=== PATIENT | female | born 1995 ===

== ENCOUNTER 2022-09-02 08:45 | Inpatient (IN) | payer OTHER ==
[2022-09-02 10:53] VITALS: BMI 27.1
[2022-09-02] MEDS ORDERED: DEXTROSE 5%-LACTATED RINGERS 1,000 ML IV SCH (11:00)
[2022-09-02] MEDS: MISOPROSTOL 100 MCG TABLET PV SCH ×2 (12:40→16:09)
[2022-09-02 12:48] LABS: BASO % 0.3 % (0-2.0); EOS % 0.2 % (0-4.5); HEMATOCRIT 37.2 % (32.4-45.2); HEMOGLOBIN 12.2 GM/dL (10.7-15.3); LYMPH % 13.5 % (8-40); MCH 26.3 pg (25.7-33.7); MCHC 32.8 g/dl (32.0-36.0); MEAN CELL VOLUME 80.3 fl (80-96); MEAN PLT VOLUME 9.1 fl (7.5-11.1); MONO % 4.8 % (3.8-10.2); NEUT % 81.2 % (42.8-82.8); PLATELET COUNT 158 10^3/uL (134-434); RBC 4.63 M/mm3 (3.60-5.2); RDW 15.8 % (11.6-15.6); WHITE BLOOD COUNT 8.4 K/mm3 (4.0-10.0)
[2022-09-02 12:55] LABS: INR 1.15 (0.83-1.09); PROTHROMBIN TIME (PATIENT) 13.2 SEC (9.7-13.0)
[2022-09-02 12:57] LABS: ACTIVATED PTT 26.9 SECONDS (25.2-36.5)
[2022-09-02 13:06] LABS: CHLORIDE 106 mmol/L (98-107); SODIUM 138 mmol/L (136-145)
[2022-09-02 13:07] LABS: CALCIUM 8.7 mg/dL (8.5-10.1)
[2022-09-02 13:08] LABS: ANION GAP 10 MMOL/L (8-16); CO2 23 mmol/L (21-32); GLUCOSE,RANDOM 91 mg/dL (74-106)
[2022-09-02 13:11] LABS: CREATININE 0.4 mg/dL (0.55-1.3)
[2022-09-02 13:14] LABS: BLOOD UREA NITROGEN 2.8 mg/dL (7-18)
[2022-09-02] MEDS ORDERED: SODIUM CHLORIDE 1,000 ML IV STA (13:57)
[2022-09-02] MEDS ORDERED: morphine SULFATE 4 MG/ML VIAL IVPB ONE (14:40)
[2022-09-02] MEDS ORDERED: morphine SULFATE 4 MG/ML VIAL ONE (14:43)
[2022-09-02] MEDS ORDERED: LIDOCAINE HCL 1% PRESERVATIVE FREE - 30ML VIAL ONE (15:27)
[2022-09-02] MEDS ORDERED: OXYTOCIN 20 UNITS in 0.9% NS 20 UNIT/1,000 ML INFUS.BAG IV ONE (15:28)
[2022-09-02] MEDS ORDERED: BENZOCAINE 28 GM HEMORRHOIDAL OINTMENT TP PRN (16:05)
[2022-09-02] MEDS ORDERED: WITCH HAZEL 50% (TUCKS) 40 PAD/JAR PAD TP PRN (16:05)
[2022-09-02] MEDS ORDERED: BENZOCAINE 20% 57 GM BOTTLE TP PRN (16:05)
[2022-09-02] MEDS ORDERED: OXYTOCIN 20 UNITS in 0.9% NS 20 UNIT/1,000 ML INFUS.BAG IV SCH (16:15)
[2022-09-02 16:54] LABS: CORD BASE EXCESS -0.9 mmol/L (0-2); CORD HCO3 23.2 mmHg (20-29); CORD PCO2 36.7 mmHg (30-78); CORD pH 7.418 (7.14-7.44)
[2022-09-02 16:56] LABS: CORD BASE EXCESS -1.2 mmol/L (0-2); CORD HCO3 23.8 mmHg (20-29); CORD PCO2 40.7 mmHg (30-78); CORD pH 7.384 (7.14-7.44)
[2022-09-02 17:20] VITALS: RESP 18
[2022-09-02] MEDS: ACETAMINOPHEN 325 MG TABLET (FP) PO PRN (17:20)
[2022-09-02] MEDS ORDERED: FERROUS SO4 325 MG TABLET (FP) ONE (17:21)
[2022-09-02] MEDS ORDERED: ACETAMINOPHEN 325 MG TABLET (FP) ONE (17:21)
[2022-09-02] MEDS: FERROUS SO4 325 MG TABLET (FP) PO SCH (17:24)
[2022-09-02] MEDS: IBUPROFEN 600 MG TABLET (FP) PO PRN (19:33)
[2022-09-03] MEDS: FERROUS SO4 325 MG TABLET (FP) PO SCH ×3 (09:03→17:23)
[2022-09-03] MEDS: PRENATAL VITAMINS W/ FOLIC ACID TABLET (FP) PO SCH (09:03)
[2022-09-03 09:21] LABS: BASO % 0.1 % (0-2.0); EOS % 0.4 % (0-4.5); HEMATOCRIT 29.5 % (32.4-45.2); LYMPH % 14.5 % (8-40); MCH 27.1 pg (25.7-33.7); MCHC 33.9 g/dl (32.0-36.0); MEAN CELL VOLUME 79.9 fl (80-96); MEAN PLT VOLUME 9.3 fl (7.5-11.1); PLATELET COUNT 131 10^3/uL (134-434); RBC 3.69 M/mm3 (3.60-5.2); RDW 15.6 % (11.6-15.6); WHITE BLOOD COUNT 9.7 K/mm3 (4.0-10.0)
[2022-09-03] MEDS: IBUPROFEN 600 MG TABLET (FP) PO PRN (12:03)
[2022-09-03 21:23] VITALS: PULSE 98
[2022-09-03] MEDS ORDERED: SENNOSIDES/DOCUSATE COMBO (SENNA PLUS) TABLET (UD) PO PRN (22:00)
[2022-09-04] MEDS: IBUPROFEN 600 MG TABLET (FP) PO PRN ×2 (01:48→09:37)
[2022-09-04] MEDS: PRENATAL VITAMINS W/ FOLIC ACID TABLET (FP) PO SCH (09:36)
[2022-09-04] MEDS: FERROUS SO4 325 MG TABLET (FP) PO SCH ×3 (09:37→18:24)
[2022-09-04 11:09] VITALS: BP 111/65; TEMP 98
[2022-09-04] MEDS: ACETAMINOPHEN 325 MG TABLET (FP) PO PRN (12:10)
== END 2022-09-04 20:00 | disposition home or self-care (01) | DRG 806 ==
LOC: JLDR 08:45 → J3W 18:15
PROVIDERS: ADMIT Obstetrics & Gynecology Maternal & Fetal Medicine; ATTEND Obstetrics & Gynecology Maternal & Fetal Medicine
PROC: 10E0XZZ Delivery of Products of Conception, External Approach (ICD-10-PCS; principal; 2022-09-02)
PROC: 3E0P7VZ Introduction of Hormone into Female Reproductive, Via Natural or Artificial Opening (ICD-10-PCS; 2022-09-02)
DX: O99.12 Other diseases of the blood and blood-forming organs and certain disorders involving the immune mechanism complicating childbirth (principal); D68.1 Hereditary factor XI deficiency; Z37.0 Single live birth; Z3A.39 39 weeks gestation of pregnancy
CPT/HCPCS: 36415; 36600; 59409; 80048; 82803; 85025; 85610; 85730; 86780; 86850; 86900; 86901; 88307-TC; C9803-CS; U0003; U0005